=== PATIENT | female | born 1960 ===

== ENCOUNTER 2017-02-14 09:19 | Emergency (ER) | payer OTHER ==
[2017-02-14 10:24] VITALS: BP 125/56
--- NOTE | 2017-02-14 10:54 | UC ---
Lower Extremity/Ankle HPI - HPI Summary HPI Summary: 56 yo female with right lat foot pain x 2 weeks hx inversion injury walking with limp - History of Current Complaint Chief Complaint: UCLowerExtremity Stated Complaint: RIGHT FOOT PAIN Time Seen by Provider: 02/14/17 10:48 Hx Obtained From: Patient Hx Last Menstrual Period: age 46 Onset/Duration: Sudden Onset, Lasting Weeks - 2 Severity Initially: Moderate Severity Currently: Mild Pain Intensity: 4 Pain Scale Used: 0-10 Numeric Aggravating Factor(s): Standing, Ambulation Alleviating Factor(s): Rest Able to Bear Weight: Yes - Allergies/Home Medications Allergies/Adverse Reactions: Allergies Allergy/AdvReac Type Severity Reaction Status Date / Time Codeine Allergy Severe Edema Verified 02/14/17 10:25 Latex Allergy Rash Verified 02/14/17 10:25 cyclines Allergy Severe Vomiting Uncoded 02/14/17 10:25 PMH/Surg Hx/FS Hx/Imm Hx Previously Healthy: Yes - Surgical History Surgical History: Yes Surgery Procedure, Year, and Place: 3 neck surgeries. partial masectomy- R/T cyst. - Family History Known Family History: Positive: Cardiac Disease, Hypertension, Diabetes - Social History Alcohol Use: Occasionally Substance Use Type: None Smoking Status (MU): Former Smoker Review of Systems Constitutional: Negative Skin: Negative Eyes: Negative ENT: Negative Respiratory: Negative Cardiovascular: Negative Gastrointestinal: Negative Genitourinary: Negative Motor: Negative Neurovascular: Negative Musculoskeletal: Arthralgia Neurological: Negative Psychological: Negative All Other Systems Reviewed And Are Negative: Yes Physical Exam Triage Information Reviewed: Yes Appearance: Well-Appearing, No Pain Distress, Well-Nourished Vital Signs: Initial Vital Signs Temp 98.5 F 02/14/17 10:16 Pulse 61 02/14/17 10:16 Resp 20 02/14/17 10:16 BP 125/56 02/14/17 10:16 Vital Signs Reviewed: Yes Eyes: Positive: Conjunctiva Clear ENT: Positive: Hearing grossly normal. Negative: Nasal congestion, Nasal drainage, Trismus, Muffled/hoarse voice Neck: Positive: Supple, Nontender Respiratory: Positive: Lungs clear, Normal breath sounds, No respiratory distress, No accessory muscle use Cardiovascular: Positive: RRR, No Murmur Musculoskeletal: Positive: Other: - see image Neurological Exam: Normal Neurological: Positive: Alert Psychological Exam: Normal Diagnostics - Radiology No standard instances Xray Interpretation: No Acute Changes Radiology Interpretation Completed By: Radiologist Lower Extremity Course/Dx - Differential Dx/Diagnosis Provider Diagnoses: right foot sprain Discharge - Discharge Plan Condition: Stable Disposition: HOME Patient Education Materials: Foot Sprain (ED) Referrals: Bogdan Busby MD [Primary Care Provider] - 2 Weeks (if not better ) Additional Instructions: ice twice daily recheck in 2 week if not better tylenol or ibuprofen for pain post op shoe Images Feet (Multiple View): 1 - tender/swollen
--- NOTE | 2017-02-14 11:20 | RAD ---
Indication: Right foot pain. 3 views of the right foot demonstrates no fracture. No other bone or joint abnormality is noted. IMPRESSION: No fracture of the right foot is noted.
== END 2017-02-14 11:40 | disposition home or self-care (01) ==
LOC: UCCORT 09:19
DX: S93.601A Unspecified sprain of right foot, initial encounter (principal); X50.1XXA Overexertion from prolonged static or awkward postures, initial encounter; Y93.9 Activity, unspecified; Y92.9 Unspecified place or not applicable; Z88.5 Allergy status to narcotic agent; Z91.040 Latex allergy status; Z87.891 Personal history of nicotine dependence
CPT/HCPCS: 99212; G0463

== ENCOUNTER 2017-12-01 10:19 | Day surgery (SDC) | payer OTHER ==
[~2017-12-01 10:19] MED LIST: Buffered Lidocaine 0.9% SYRIN* 5 ML/SYR SYRINGE INTRADERM ONE; Dexamethasone TAB* 4 MG ONE; Dexamethasone TAB* 4 MG PO ONE; DiMENhydriNATE IV* 50 MG/ML VIAL IV PUSH PRN; Famotidine IV* 10 MG/ML 2 ML (20 mg) IV ONE; Famotidine IV* 10 MG/ML 2 ML (20 mg) ONE; Morphine INJ* 2 MG/ML 1 ML CARPUJECT IV PRN; Naloxone* 0.4 MG/ML 1 ML VIAL IV PRN; Ondansetron INJ* 2 MG/ML VIAL ONE; PROCHLORPERAZINE INJ 5 MG/ML 2 ML VIAL IV PRN; Scopolamine 1.5 mg* PATCH TRANSDERM PRN; fentaNYL* 50 MCG/ML 2 ML VIAL (100 MCG VIAL) IV PRN; oxyCODONE/Acetamin 5/325 MG* TAB PO PRN
[2017-12-01] MEDS ORDERED: ceFAZolin 2 GM PREMIX (*) 2 GM/50 ML BAG IVPB ONE (10:27)
[2017-12-01] MEDS ORDERED: Midazolam* 1 MG/ML 5 ML VIAL (5 MG) ONE (11:14)
[2017-12-01] MEDS ORDERED: fentaNYL* 50 MCG/ML 2 ML VIAL (100 MCG VIAL) ONE (11:14)
[2017-12-01] MEDS ORDERED: Bupivacaine 0.25% SDV* 30 ML ONE (11:29)
[2017-12-01 14:23] VITALS: BP 114/61
--- NOTE | 2017-12-02 10:26 | OP ---
DATE OF SURGERY: 12/01/17 [facility] DATE OF : 56. ATTENDING SURGEON: Melo Mon MD. RESPIRATORY THERAPY DIRECTOR: SEDRICK Schilling. ANESTHESIOLOGIST: Dr. Adhikari. ANESTHESIA: General with interscalene block. PRE-OP DIAGNOSIS: Right shoulder impingement with AC joint arthritis and bicipital tendinitis. POST-OP DIAGNOSIS: High-grade partial thickness tear of the supraspinatus tendon with impingement, superior labral tear, and AC joint arthritis. OPERATIVE PROCEDURE: 1. Right shoulder arthroscopy with glenohumeral debridement. 2. Subacromial decompression with acromioplasty. 3. Distal clavicle excision. 4. Rotator cuff repair. 5. Subpectoral biceps tenodesis. COMPLICATIONS: None. ESTIMATED BLOOD LOSS: Minimal. IMPLANTS USED: One Conn and Nephew 4.75 Healicoil, one 55 MultiFix, and 1 Q- Fix 2.8 mm. INDICATIONS: Sydney Lou is a 57-year-old female, who had persistent right shoulder pain for some time, refractory to conservative management. She had failed conservative treatment. MRI was reviewed that demonstrates tendinopathy with no obvious tear as well as a significant impingement, superior labral lesion and bicipital tendinitis and AC joint arthritis. Risks, and benefits of the surgery were discussed at length and included, but not limited to bleeding, infection, damage to nerves, vessels, surrounding structures, wound nonhealing, persistent pain, need for surgery, scarring, stiffness, incomplete relief of symptoms, risks of anesthesia. DESCRIPTION OF PROCEDURE: The patient was greeted in the preoperative area by the attending surgeon. The correct extremity was marked and the consent was confirmed. The patient then underwent interscalene nerve block by the anesthesiologist, after which she was brought back to the operating suite, she was placed in the supine position on the operating table. She then underwent general anesthesia endotracheal intubation, after which she was placed in the left lateral decubitus position. The right shoulder was draped unsterile with 10 pounds of traction. She was secured with a peg board and an axillary roll. The right shoulder was then prepped and draped in usual sterile fashion beginning with chlorhexidine soap, scrub, and alcohol wipe and the final prep with ChloraPrep. After appropriate surgical pause indicating site, side, procedure, administration of antibiotics. The standard postero-lateral portal was made sharply with an 11 blade. The scope was introduced into the joint, joint was examined. There was abundant synovitis present. The undersurface of the rotator cuff had a high-grade partial thickness tear with unstable flaps. The subscap was intact with mild fraying though. The inferior recess was intact but abundant synovitis. The anterior, posterior and superior labrum were then debrided back after the anterior portal was made. The biceps was then tenotomized for later tenodesis due to the superior labral tear and the bicipital tendinitis. There was damage to the laina. Shaver was used to debride back the anterior, posterior, and superior labrum. Once the debridement was completed, the attention was directed to the subacromial space. The scope was positioned in the subacromial space. There was abundant bursa that was present. This was very thick. This was debrided back using a shaver to the lateral portal. Once this was done the electrocautery device was used to skeletonize the acromion, which revealed a subtle downward sloping spur. This was debrided back using the 4-0 oval cory. The CA ligament was pealed back as well. After this was done and loose debris was removed, attention was directed to the distal clavicle. The cory was brought into the anterior portal and then distal 8 mm of the clavicle were then removed under arthroscopic visualization and with care to secure or prevent injury to the CC ligament. Once the debridement was completed , the clavicle was taken through a range of motion. There was no evidence of impingement. At this point, the attention was directed to the rotator cuff. Prior to completing the intraarticular work the cuff was marked with the 0 PDS suture. At this point, the cuff was probed and was found to be intact on the bursal site, but there was such a large partial thickness tear on the articular side, a decision was made to repair this. An 11 blade was used to complete the tear. The shaver was used to debride back the tendon, which did have characteristics of tendinopathy. The electrocautery was used to prepare the greater tuberosity and then the rasp as well as the 4-0 oval cory was used to gently decorticate the greater tuberosity. After which through a separate stab incision a 4.75 Healicoil was placed with excellent purchase. The owl was then used to do a small bone marrow tunnels to offer further points of bleeding and healing. The sutures were then passed through the tendon in a horizontal mattress configuration. They were then tied down and then passed through the second anchor, the MultiFix for a double- row fixation. Final images were obtained. The wounds were copiously irrigated with sterile saline. Attention was then directed to the biceps. The bed was air planed to the right side. The anterior aspect of the shoulder was prepped using ChloraPrep. A 15 blade was used to make incision in line with the biceps tendon. The soft tissue was carefully dissected to expose the pec fascia. Then the remainder of the dissection was done bluntly. The pec was then elevated. The bicipital groove was palpated. The biceps was brought through the wound. This was found to have abundant synovitis and erythema. The groove was then prepared in usual fashion using electrocautery, the red ball rasp, and the osteotome. This allowed for bony bleeding bed. The Q-Fix guide was then placed and drilled unicortically. The Q-Fix was deployed with excellent purchase. The sutures were passed through the tendon approximately 1 cm proximal to the musculotendinous junction in a Cy-Carmine type configuration. The excess stump was excised. The biceps was shuttled back to the wound and tied down. The wound was copiously irrigated with sterile saline. The portals were closed with 3-0 nylon. The biceps wound was closed in layers with 2-0 Vicryl and 3-0 Monocryl. Sterile dressings were applied. 15 cc of 0.5% Marcaine plain were injected about the anterior incision. Sterile dressings were applied, a Cryo/Cuff and UltraSling were applied. She was awoken from anesthesia and transferred to the PACU in stable condition. POSTOPERATIVE PLAN: She will be nonweightbearing. She will be in the sling for approximately 6 weeks. She will be discharged with pain medications and antibiotics. I will see the patient back in 10 to 14 days. DVT prophylaxis was considered, but deferred due to no previous personal or family history. The patient was advised to quit smoking. [id number]/[facility] #: [id number] [place]
[2017-12-04] MEDS ORDERED: Scopolamine PATCH Remove* 1 NOTE MISC PATCH OFF ONE (05:50)
== END 2017-12-01 14:21 | disposition home or self-care (01) ==
LOC: OREAST 10:19
PROVIDERS: ATTEND Orthopaedic Surgery
DX: M75.41 Impingement syndrome of right shoulder (principal); M75.21 Bicipital tendinitis, right shoulder; M19.211 Secondary osteoarthritis, right shoulder; M75.111 Incomplete rotator cuff tear or rupture of right shoulder, not specified as traumatic; Z72.0 Tobacco use; G89.18 Other acute postprocedural pain; G89.29 Other chronic pain
CPT/HCPCS: C1713; C1776; J0690; J2250; J3010; J8540